=== PATIENT | female | born 1995 | race Caucasian/White ===

== ENCOUNTER 2016-06-21 15:45 | Emergency (ER) | payer BC, MEDICAID ==
[2016-06-21 15:45] VITALS: BMI 27.7
[2016-06-21 15:53] VITALS: BP 131/75; PULSE 78; RESP 16; TEMP 98.2; O2SAT 99
[2016-06-21 16:33] LABS: BASO # 0.1 K/uL (0.0-0.2); BASO % 1.4 % (0.0-2.0); EOS # 0.4 K/uL (0.0-0.7); EOS % 3.8 % (0.0-4.0); HEMATOCRIT 34.2 % (34.0-47.0); LYMPH # 3.8 K/uL (1.0-4.3); LYMPH % 39.5 % (20.0-40.0); MEAN CELL VOLUME 79.8 fl (81.0-99.0); MEAN CORPUSCULAR HEMOGLOBIN 26.6 pg (27.0-31.0); MEAN CORPUSCULAR HGB CONC 33.3 g/dL (33.0-37.0); MEAN PLATELET VOLUME 8.5 fl (7.2-11.7); MONO # 0.5 K/uL (0.0-0.8); MONO % 4.9 % (0.0-10.0); NEUT # 4.9 K/uL (1.8-7.0); NEUT % 50.4 % (50.0-75.0); NRBC % 0.1 % (0.0-0.0); RED CELL DISTRIBUTION WIDTH 15.4 % (11.5-14.5); WHITE BLOOD COUNT 9.6 K/uL (4.8-10.8)
[2016-06-21 16:44] LABS: ALB/GLOB RATIO 1.3 (1.0-2.1); ALKALINE PHOSPHATASE 117 U/L (38-126); ALT/SGPT 44 U/L (9-52); AST/SGOT 35 U/L (14-36); BILIRUBIN,TOTAL 0.4 mg/dl (0.2-1.3); BLOOD UREA NITROGEN 17 mg/dl (7-17); CALCIUM 8.3 mg/dL (8.4-10.2); CARBON DIOXIDE 21 mmol/L (22-30); CHLORIDE 104 mmol/L (98-107); GFR AFRICAN-AMERICAN > 60; GLUCOSE,RANDOM 99 mg/dL (65-105); SODIUM 143 mmol/l (132-148); TOTAL PROTEIN 7.7 G/DL (6.3-8.2)
--- NOTE | 2016-06-21 16:58 | ED PDOC ---
HPI: Chest Pain Time Seen by Provider: 06/21/16 15:58 Chief Complaint (Nursing): Chest Pain Chief Complaint (Provider): Chest pain History Per: Patient History/Exam Limitations: no limitations Additional Complaint(s): patient presents for one week hx of chest pain, right upper chest described as punching pain at times intermittent dull ache worse with hunching forward and sneezing, with no associated symptoms. (-) SOB, dizziness, headaches, palpitations, abdominal pain. no pain with deep inspiration no leg pain or swelling no recent travel, no cancer, no hormone therapy, no hx PE/DVT she notes the pain started when she thought she was getting her period and her breasts were bothering her, her menses was a little longer then normal, her breasts went back to normal but pain continued. she took HPT which was negative. Past Medical History Reviewed: Historical Data, Nursing Documentation, Vital Signs Vital Signs: Last Vital Signs Temp 98.2 F 06/21/16 15:52 Pulse 78 06/21/16 15:52 Resp 16 06/21/16 15:52 BP 131/75 06/21/16 15:52 Pulse Ox 99 06/21/16 15:52 - Medical History PMH: No Chronic Diseases, Anemia (after of child- extra bleeding during delivery needed transfusion) - Surgical History Surgical History: No Surg Hx - Family History Family History: States: No Known Family Hx Denies: NH, Diabetes, Hypertension - Living Arrangements Living Arrangements: With Family - Social History Current smoker - smoking cessation education provided: No Alcohol: Occasional Drugs: Denies - Home Medications Home Medications: Ambulatory Orders Medication Instructions Recorded Pnv with Ca,No.72/Iron/FA [Pnv 1 tab PO DAILY 06/30/15 Plus Multivit Tab] Ferrous Sulfate [Iron] 325 mg PO TID #100 capsule.er 07/03/15 Ibuprofen [Motrin Tab] 600 mg PO Q6 PRN #0 tab 07/03/15 Ibuprofen [Motrin] 600 mg PO Q6H PRN #30 tab 07/03/15 Oxycodone HCl/Acetaminophen 1 each PO Q4H PRN #30 tablet 07/03/15 [Percocet 5-325 mg Tablet] Ibuprofen [Motrin] 600 mg PO TID PRN #30 tab 06/21/16 - Allergies Allergies/Adverse Reactions: Allergies Allergy/AdvReac Type Severity Reaction Status Date / Time No Known Allergies Allergy Verified 06/29/15 17:42 Wells Criteria for PE - Wells Criteria for Pulmonary Embolism Clinical Signs and Symptoms of DVT: No P.E is #1 Diagnosis, or Equally Likely: No Heart Rate >100: No Immobilization at least 3 days;Surgery previous 4 weeks: No Previous, objectively diagnosed PE or DVT: No Hemoptysis: No Malignancy w/treatment within 6 months, or palliative: No Total Score: 0 Review of Systems ROS Statement: Except As Marked, All Systems Reviewed And Found Negative Constitutional: Negative for: Fever Cardiovascular: Positive for: Chest Pain. Negative for: Palpitations Respiratory: Negative for: Shortness of Breath Gastrointestinal: Negative for: Vomiting, Abdominal Pain Genitourinary Female: Positive for: Vaginal Bleeding (see HPI). 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 Negative for: Chest Non Tender, Murmur Respiratory: Positive for: Normal Breath Sounds. Negative for: Wheezing Gastrointestinal/Abdominal: Positive for: Normal Exam, Soft. Negative for: Tenderness Back: Positive for: Normal Inspection. Negative for: L CVA Tenderness, R CVA Tenderness Extremity: Positive for: Normal ROM, Capillary Refill (normal ). Negative for: Tenderness, Pedal Edema, Calf Tenderness, Swelling Neurologic/Psych: Positive for: Alert, Oriented, Gait (normal ). Negative for: Motor/Sensory Deficits - Laboratory Results Result Diagrams: 06/21/16 16:29 06/21/16 16:29 Urine POC: Negative Urine dip results: Positive for: Leukocyte Esterase (small). Negative for: Blood, Nitrate, Ketones, Glucose, Bilirubin, Protein - ECG ECG: Positive for: Interpreted By Me, Viewed By Me ECG Rhythm: Positive for: Normal QRS, Normal ST Segment, Sinus Rhythm (65). Negative for: ST/T Changes O2 Sat by Pulse Oximetry: 99 Pulse Ox Interpretation: Normal - Radiology X-Ray: Interpreted by Me X-Ray Interpretation: No Acute Disease Medical Decision Making Medical Decision Makin21 y/o female with chest pain. likely musculoskeletal pain - labs - EKG - CXR - toradol - re-evaluation labs reviewed with no acute finding. trop negative d-dimer negative feeling better after toradol given negative EKG, troponin, d-dimer and tenderness on exam non cardiac in nature and likely musculoskeletal/breast tissue. no breast masses but did tell her to follow up with [facility] for repeat breast exam. all questions answered stable for discharge. Disposition - Clinical Impression Clinical Impression: Chest wall pain - Patient ED Disposition Is Patient to be Admitted: No Counseled Patient/Family Regarding: Studies Performed, Diagnosis, Need For Followup, Rx Given - Disposition Disposition: Routine/Home Disposition Time: 17:10 Condition: IMPROVED Additional Instructions: follow up with [facility] for repeat breast exam return for any new concerns follow up with Primary doctor without fail Prescriptions: Ibuprofen [Motrin] 600 mg PO TID PRN #30 tab PRN Reason: Other Instructions: Chest Wall Pain (ED), Noncardiac Chest Pain (ED), Musculoskeletal Pain (ED)
[2016-06-21 18:57] LABS: POTASSIUM 3.9 MMOL/L (3.6-5.0)
--- NOTE | 2016-06-22 06:49 | RAD ---
HISTORY: chest pain COMPARISON: No prior. TECHNIQUE: Chest PA and lateral FINDINGS: LUNGS: No active pulmonary disease. PLEURA: No significant pleural effusion identified. No pneumothorax apparent. CARDIOVASCULAR: Normal. OSSEOUS STRUCTURES: No significant abnormalities. VISUALIZED UPPER ABDOMEN: Normal. OTHER FINDINGS: None. IMPRESSION: No active disease.
--- NOTE | 2016-06-22 08:18 | CARD ---
APPROVED REPORT EKG Measurement Heart [id number] <Conclusion> Normal sinus rhythm Normal ECG
== END 2016-06-21 17:30 | disposition home or self-care (01) ==
LOC: H.ER 15:45
DX: R07.9 Chest pain, unspecified (principal)